=== PATIENT | female | born 1995 | race Caucasian/White ===

== ENCOUNTER 2016-10-18 19:14 | Emergency (ER) | payer OTHER ==
[~2016-10-18] VITALS: Ht 152.4 cm; Wt 61.0 kg
[2016-10-18 20:04] LABS: HEMATOCRIT 36.7 % (36.0-46.0); MCHC 32.7 G/DL (30.0-36.0); MCV 85.7 FL (83-99); PLATELET COUNT 200 K/uL (156-360); RBC DIS.WIDTH-CV 12.6 % (11.8-14.6); RBC DIS.WIDTH-SD 39.2 % (39-53); RED BLOOD COUNT 4.28 M/uL (3.80-5.20); WHITE BLOOD COUNT 4.6 K/uL (4.1-10.2)
[2016-10-18 20:13] LABS: CHLORIDE 108 mEq/L (99-109); POTASSIUM 3.6 mEq/L (3.7-5.4); SODIUM 141 mEq/L (136-147)
[2016-10-18 20:14] LABS: GLUCOSE 83 mg/dL (70-99)
[2016-10-18 20:16] LABS: ANION GAP 9 MEQ/L (2-14)
[2016-10-18 20:18] LABS: GFR ESTIMATE (CALCULATED) > 59 mL/min/
[2016-10-18 20:19] LABS: UREA NITROGEN (BUN) 7 mg/dL (9-23)
[2016-10-18 20:29] LABS: QUANTITATIVE HCG 8.5 MIU/ML
[2016-10-18 20:31] LABS: ADD MIUA? YES; BILIRUBIN NEGATIVE; BLOOD LARGE; COLOR YELLOW ((YELLOW)); GLUCOSE (STRIP) NEGATIVE; KETONES NEGATIVE; LEUKOCYTES NEGATIVE; NITRITE NEGATIVE; PROTEIN (STRIP) NEGATIVE; SPECIFIC GRAVITY 1.017 (1.000-1.030); UROBILINOGEN 0.2 MG/DL (0.2-1.0)
[2016-10-18 20:37] LABS: BACTERIA RARE /HPF; EPITHELIAL CELLS RARE /HPF; MUCUS TRACE /LPF; RED BLOOD CELLS TNTC /HPF (0-5); UCUL ADDED? NO; WHITE BLOOD CELLS 0-5 /HPF (0-5)
[2016-10-18 21:30] VITALS: BP 136/72
== END 2016-10-18 21:16 | disposition home or self-care (01) ==
LOC: EME 19:14
PROVIDERS: Physician Assistant
DX: O20.0 Threatened abortion (principal)
CPT/HCPCS: 80048; 81003; 84702; 85027; 99281; 99284